=== PATIENT | male | born 1975 | race Caucasian/White ===

== ENCOUNTER 2017-05-31 08:52 | Day surgery (SDC) | payer BC ==
[2017-05-29 14:39] VITALS: BP 145/95
[~2017-05-31] VITALS: Ht 182.9 cm; Wt 117.0 kg
[~2017-05-31 08:52] MED LIST: ALPR1TAB2 PO; ASPI-496 PO; BUPIVACAINE/PF 0.25% ONE; CHOL500045 PO; CYCL-259 PO; EPINEPHRINE 1 MG/ML, 1ML ONE; IBUP-1221 PO; LISI1TAB5 PO; OMEP-110 PO; PRAZ5CAP2 PO; SERT100T PO; TEST200K IM; ZOLP10TA PO
[2017-05-31] MEDS ORDERED: LACTATED RINGERS 1,000 ML IV SCH (09:14)
[2017-05-31 09:15] VITALS: BP 157/114
[2017-05-31] MEDS ORDERED: SUCCINYLCHOLINE 20 MG/ML, 10ML ONE (10:30)
[2017-05-31] MEDS ORDERED: ONDANSETRON 2MG/ML, 2ML ONE (10:30)
[2017-05-31] MEDS ORDERED: ROCURONIUM 10 MG/ML ONE (10:30)
[2017-05-31] MEDS ORDERED: PROPOFOL 10 MG/ML, 20ML ONE (10:30)
[2017-05-31] MEDS ORDERED: METOCLOPRAMIDE 5 MG/ML, 2ML ONE (10:30)
[2017-05-31] MEDS ORDERED: CEFAZOLIN 1,000 MG ONE (10:30)
[2017-05-31] MEDS ORDERED: DEXAMETHASONE 4 MG/ML, 1ML ONE (10:30)
[2017-05-31] MEDS ORDERED: KETOROLAC 30 MG/1 ML ONE (10:30)
[2017-05-31] MEDS ORDERED: FENTANYL PF 100 MCG/2ML IV PRN (11:30)
[2017-05-31] MEDS ORDERED: OXYcodone 5 MG/5 ML ORAL.SOL UDC PO PRN (11:30)
[2017-05-31] MEDS ORDERED: hydrALAzine 20 MG/ML, 1ML IV PRN (11:30)
[2017-05-31] MEDS ORDERED: HYDROmorphone 1 MG/ML, 1ML IV PRN (11:30)
[2017-05-31] MEDS ORDERED: ACETAMINOPHEN 325 MG TABLET PO PRN (11:30)
[2017-05-31] MEDS ORDERED: LORazepam 2 MG/ML, 1ML IVPush PRN (11:30)
[2017-05-31] MEDS ORDERED: MIDAZOLAM 1 MG/ML, 2ML IV PRN (11:30)
[2017-05-31] MEDS ORDERED: ONDANSETRON 2MG/ML, 2ML IVPush PRN (11:30)
[2017-05-31] MEDS ORDERED: PROMETHAZINE 25 MG/ML, 1ML IV PRN (11:30)
[2017-05-31] MEDS ORDERED: DIAZEPAM 5 MG/ML, 2ML IVPush PRN (11:30)
[2017-05-31] MEDS ORDERED: MEPERIDINE/PF 25MG/0.5ML IVPush PRN (11:30)
[2017-05-31] MEDS ORDERED: LABETALOL 5MG/ML, 20ML IV PRN (11:30)
== END 2017-05-31 14:55 ==
LOC: OUT 08:52
PROVIDERS: ATTEND Orthopaedic Surgery
DX: S43.432A Superior glenoid labrum lesion of left shoulder, initial encounter (principal); S46.112A Strain of muscle, fascia and tendon of long head of biceps, left arm, initial encounter; M75.112 Incomplete rotator cuff tear or rupture of left shoulder, not specified as traumatic; M75.42 Impingement syndrome of left shoulder; M19.012 Primary osteoarthritis, left shoulder; I10 Essential (primary) hypertension; F41.9 Anxiety disorder, unspecified; K21.9 Gastro-esophageal reflux disease without esophagitis; X58.XXXA Exposure to other specified factors, initial encounter; Y93.89 Activity, other specified; Y92.89 Other specified places as the place of occurrence of the external cause; Y99.8 Other external cause status; Z87.39 Personal history of other diseases of the musculoskeletal system and connective tissue; E66.01 Morbid (severe) obesity due to excess calories; Z68.35 Body mass index [BMI] 35.0-35.9, adult
CPT/HCPCS: 23430; 29823; 29826; C1713; J0171; J0330; J0690; J1100; J1885; J2405; J2704; J2765; J3490